=== PATIENT | female | born 1945 | race Caucasian/White ===

== ENCOUNTER 2019-09-03 07:53 | Outpatient (CLI) | payer MEDICARE, BC ==
--- NOTE | 2019-09-03 11:13 | RAD ---
EXAM: Chest PA and lateral: HISTORY: Fever. Cough. COMPARISON: 05/17/2013 FINDINGS: Heart: Normal cardiac silhouette Aorta: Unremarkable Pulmonary vessels: Normal Costophrenic angles: Right costophrenic angle is clear. Minimal blunting of the left costophrenic ang le. Lungs: No consolidation or masses. Pneumothorax: No pneumothorax Osseous structures: No osseous abnormalities IMPRESSION: No acute cardiopulmonary process.
--- NOTE | 2019-09-04 07:07 | EKG ---
Test Reason : Blood Pressure : / mmHG Vent. Rate : 076 BPM Atrial Rate : 076 BPM P-R Int : 170 ms QRS Dur : 076 ms QT Int : 364 ms P-R-T Axes : 064 055 026 degrees QTc Int : 409 ms Normal sinus rhythm Cannot rule out Anterior infarct (cited on or before 19-NOV-2012) Abnormal ECG When compared with ECG of 30-OCT-2013 08:58, Nonspecific T wave abnormality no longer evident in Anterior leads Confirmed by DR. Nery IBARRA ([id number]) on 09/04/2019 7:07:10 AM Referred By: EDWIN Confirmed By:DR. Nery IBARRA
== END 2019-09-03 07:54 | disposition home or self-care (01) ==
LOC: LABBT 07:53
PROVIDERS: ATTEND Surgery
DX: Z01.818 Encounter for other preprocedural examination (principal); K43.9 Ventral hernia without obstruction or gangrene
CPT/HCPCS: 71046; 93005; 93010

== ENCOUNTER 2019-09-05 09:27 | Inpatient (IN) | payer MEDICARE, BC ==
[2019-09-03 10:17] VITALS: BMI 30.9
[2019-09-05] MEDS ORDERED: Bupivacaine HCl 0.5%/Epinephrine 1:200,000/PF 30 ml Vial ONE (10:32)
[2019-09-05] MEDS ORDERED: Succinylcholine Chloride 20 MG/ML 10 ml SYRINGE FS ONE (10:32)
[2019-09-05] MEDS ORDERED: Esmolol 100 MG/10 ML VIAL ONE (10:32)
[2019-09-05] MEDS ORDERED: PHENYLEPHRINE-NS 100 MCG/ML 10 ML SYRINGE ONE (10:32)
[2019-09-05] MEDS ORDERED: Rocuronium Bromide 10 MG/ML (10ML VIAL) ONE (10:32)
[2019-09-05] MEDS ORDERED: PROPOFOL 200 MG/20 ML VIAL ONE (10:32)
[2019-09-05] MEDS ORDERED: Lidocaine 1% PF 5 ML VIAL ONE (10:32)
[2019-09-05] MEDS ORDERED: Ondansetron PF 4 MG/2 ML Vial ONE (10:32)
[2019-09-05] MEDS ORDERED: Midazolam HCl 2 mg/2 ml Vial ONE (10:42)
[2019-09-05] MEDS ORDERED: Fentanyl 100 MCG/2 ML VIAL ONE ×3 (10:42→14:25)
[2019-09-05] MEDS ORDERED: Famotidine/PF 20 mg/2ml Vial ONE (11:04)
[2019-09-05] MEDS ORDERED: HYDROmorphone 2 MG/ML VIAL ONE (11:41)
[2019-09-05] MEDS ORDERED: Ketamine 50 MG/ML (10ML VIAL) ONE (11:42)
[2019-09-05] MEDS ORDERED: Ondansetron HCl/PF 4 MG/2 ML Vial IVP PRN (13:54)
[2019-09-05] MEDS ORDERED: Ketorolac Tromethamine 30 MG/ML VIAL IVP PRN (13:54)
[2019-09-05] MEDS ORDERED: Promethazine HCl 25 MG/ML VIAL IM PRN ×2 (13:54→14:42)
[2019-09-05] MEDS ORDERED: Promethazine HCl 25 MG/ML VIAL SLOW IVP PRN (13:54)
[2019-09-05] MEDS ORDERED: diphenhydrAMINE 50 MG/ML VIAL IM PRN (14:42)
[2019-09-05] MEDS ORDERED: Zolpidem Tartrate 5 MG TAB PO PRN (14:42)
[2019-09-05] MEDS ORDERED: Naloxone HCl 0.4 mg/ml Vial IV PRN (14:42)
[2019-09-05] MEDS ORDERED: diphenhydrAMINE 50 MG/ML VIAL IVP PRN (14:42)
[2019-09-05] MEDS ORDERED: Ondansetron PF 4 MG/2 ML Vial IVP PRN (14:42)
[2019-09-05] MEDS ORDERED: diphenhydrAMINE 25 MG CAP PO PRN (14:42)
[2019-09-05] MEDS ORDERED: fentaNYL Citrate/PF 2,000 MCG in Sodium Chloride 0.9% 60 ML IV PRN (14:42)
[2019-09-05] MEDS ORDERED: Communication Order-Pharmacy FS SCH (14:45)
[2019-09-05] MEDS ORDERED: Promethazine 25 MG TAB PO PRN (16:56)
--- NOTE | 2019-09-05 17:00 | PDOC.OP ---
Operative Note - Operative Note Operative Note: PROCEDURE: Open ventral hernia repair with mesh SURGEON: Kianna Chávez M.D. DATE: 09/05/2019 PREOPERATIVE DIAGNOSIS: Recurrent ventral hernia POSTOPERATIVE DIAGNOSIS: Recurrent ventral hernia HISTORY: Patient is status post laparoscopic gastric bypass and cholecystectomy with epigastric ventral hernia. This was repaired laparoscopically but recurred. Patient had severe pain after laparoscopic repair so requested open repair. PROCEDURE IN DETAIL: After informed consent was obtained and appropriate preoperative antibiotics administered the patient was taken to the operating on she was placed in supine position and general anesthesia was administered. She was prepped and draped in standard sterile fashion and a midline incision made over the epigastric hernia. Local anesthesia was not used since the patient had a preoperative TAP block. Dissection was carried down to the hernia sac which was dissected free circumferentially down to the attenuated fascia. The hernia sac was opened and was found to contain redundant encapsulated mesh from her previous repair. This was dissected free from the hernia sac and the hernia sac discarded. The mesh was then dissected free from the fascia circumferentially for a distance of a couple centimeters back from the fascial edge but appeared to still be adherent to the fascia so was left in place. The defect was much wider than tall so decision was made to close it transversely. The redundant encapsulated mesh was brought together transversely with interrupted figure-of- eight Ethibond sutures to prevent creation of a potential space between the mesh and the fascia, and also to reinforce the fascial closure since the fascia was quite attenuated. The fascia was then closed transversely with interrupted [id number] Ethibond sutures. The closure was reinforced with an 10 x 5 cm onlay mesh which was oriented transversely and secured circumferentially to the fascia with [id number] Ethibond sutures. The wound was irrigated and hemostasis verified. The subcutaneous tissues were closed with 2 layers of 3-0 subcutaneous Monocryl sutures and the skin was closed with a running 4-0 subcuticular Monocryl suture. Dermabond dressings were placed and a pressure dressing secured with an abdominal binder. Estimated blood loss was minimal. There were no complications. There were no specimens.
[2019-09-05] MEDS: metFORMIN 500 MG TAB PO SCH (18:25)
[2019-09-05] MEDS ORDERED: [UNRECOGNIZED DRUG - REMARK] FS PRN (19:01)
[2019-09-05] MEDS: Ursodiol 300 MG CAP PO SCH (20:04)
[2019-09-05] MEDS: Gabapentin 300 MG CAP PO SCH (20:05)
[2019-09-05] MEDS: DULoxetine 60 MG CAP PO SCH (20:05)
[2019-09-05] MEDS: tiZANidine HCl 4 MG TAB PO SCH (20:05)
[2019-09-05] MEDS: Zolpidem Tartrate 5 MG TAB PO SCH (20:06)
[2019-09-05] MEDS ORDERED: URSODIOL 250 MG PO SCH (21:00)
[2019-09-06] MEDS: Levothyroxine Sodium 50 MCG TAB PO SCH (05:28)
[2019-09-06] MEDS: Gabapentin 300 MG CAP PO SCH ×3 (08:26→20:14)
[2019-09-06] MEDS: Lisinopril 5 MG TAB PO SCH (08:26)
[2019-09-06] MEDS: tiZANidine HCl 4 MG TAB PO SCH (08:26)
[2019-09-06] MEDS: Ursodiol 300 MG CAP PO SCH ×3 (08:26→20:15)
[2019-09-06] MEDS: Triamterene/Hydrochlorothiazide 37.5 mg/25 mg Tablet PO SCH (08:26)
[2019-09-06] MEDS: metFORMIN 500 MG TAB PO SCH ×2 (08:26→16:28)
[2019-09-06] MEDS ORDERED: DC PCA Order Set 1 EACH FS ONE (09:05)
[2019-09-06] MEDS ORDERED: fentaNYL 50 mcg/hour Patch TD SCH (09:15)
--- NOTE | 2019-09-06 09:17 | PRG ---
DATE OF SERVICE: 09/06/2019 SUBJECTIVE: The patient is still having quite a bit of incisional pain. She is a chronic pain patient. She is normally on Duragesic patches. She rates her pain at 7/10. She is still on a PULPING MACHINE OPERATOR pump of fentanyl. She cannot take any type of Tylenol products nor can she take hydrocodone. She is normally on a Duragesic patch. She is currently on 25 mcg Patch. She reports she has passed some flatus, tolerating a regular diet. OBJECTIVE: VITAL SIGNS: On examination; temperature 98.1, pulse 89, and blood pressure 113/70. GENERAL: She is awake and alert, does not appear to be in any distress. ABDOMEN: Her abdomen is soft and nondistended, really no significant tenderness. ASSESSMENT: Chronic pain with postoperative pain. PLAN: We will discontinue the PULPING MACHINE OPERATOR pump. We will increase the Duragesic patch to 50 mcg and supplement with IV fentanyl. Once we get her pain under control with home usable medications, we will discharge. Job ID: [id number]
[2019-09-06] MEDS: Fentanyl 100 MCG/2 ML VIAL SLOW IVP PRN ×3 (10:07→22:22)
[2019-09-06] MEDS: oxyCODONE/Acetaminophen 5 mg/325 mg Tablet PO PRN ×2 (11:43→19:24)
[2019-09-06] MEDS: diphenhydrAMINE 25 MG CAP PO PRN ×2 (11:44→20:14)
[2019-09-06] MEDS: Acetaminophen/Codeine 30-300mg Tablet PO PRN (16:28)
[2019-09-06] MEDS: DULoxetine 60 MG CAP PO SCH (20:14)
[2019-09-07] MEDS: Zolpidem Tartrate 5 MG TAB PO SCH (00:47)
[2019-09-07] MEDS: tiZANidine HCl 4 MG TAB PO SCH ×2 (00:47→08:36)
[2019-09-07] MEDS: Acetaminophen/Codeine 30-300mg Tablet PO PRN (06:08)
[2019-09-07] MEDS: Levothyroxine Sodium 50 MCG TAB PO SCH (06:08)
[2019-09-07] MEDS: Gabapentin 300 MG CAP PO SCH (08:35)
[2019-09-07] MEDS: Lisinopril 5 MG TAB PO SCH (08:35)
[2019-09-07] MEDS: metFORMIN 500 MG TAB PO SCH (08:36)
[2019-09-07] MEDS: Triamterene/Hydrochlorothiazide 37.5 mg/25 mg Tablet PO SCH (08:36)
[2019-09-07] MEDS: Ursodiol 300 MG CAP PO SCH (11:13)
[2019-09-07 12:59] VITALS: BP 119/70; TEMP 97.8
--- NOTE | 2019-09-08 14:23 | DIS ---
DATE OF ADMISSION: 09/05/2019 DATE OF DISCHARGE: 09/07/2019 FINAL DIAGNOSES: Recurrent ventral incisional hernia, chronic pain, hypertension, hyperlipidemia, hypothyroidism, and obesity. HISTORY OF PRESENT ILLNESS: Ms. Slade is a 74-year-old woman who underwent a gastric bypass. She then developed gallstones and choledocholithiasis and underwent open procedures for this in [place]. Postoperatively, she developed a ventral hernia, which was repaired laparoscopically, but now she has recurrent discomfort and bulging in the same general area and recurrent hernia on exam. She decided to proceed with open repair, because she had intolerable pain with laparoscopic repair in the past. She was taken to the operating room and underwent repair without incident. Postoperatively, her pain was not controlled on oral medications, so she was admitted with a LEATHER CURRIER for pain management. Her pain improved and she was able to be transitioned to Duragesic patch and oral medications and by 09/07/2019, she was able to be discharged home. She is to return [facility] 2 weeks' time for a postop check and to avoid any heavy lifting. She is to wear an abdominal binder with a Kerlix roll over the area of the hernia to compress the tissues. Job ID: [id number]
== END 2019-09-07 13:45 | disposition home or self-care (01) | DRG 355 ==
LOC: SDC 09:27 → SURG A 14:50
PROVIDERS: ADMIT Surgery; ATTEND Surgery
PROC: 0WUF0JZ Supplement Abdominal Wall with Synthetic Substitute, Open Approach (ICD-10-PCS; principal; 2019-09-05)
DX: K43.2 Incisional hernia without obstruction or gangrene (principal); G89.29 Other chronic pain; I10 Essential (primary) hypertension; E78.5 Hyperlipidemia, unspecified; E78.00 Pure hypercholesterolemia, unspecified; E89.0 Postprocedural hypothyroidism; Z96.653 Presence of artificial knee joint, bilateral; Z96.622 Presence of left artificial elbow joint; Z79.899 Other long term (current) drug therapy; Z79.890 Hormone replacement therapy
CPT/HCPCS: 71046; 93005; C1781; J0131; J0670; J0690; J1170; J2001; J2250; J2405; J2704; J3010; J3490; Q0163; S0028